=== PATIENT | female | born 1985 | race Caucasian/White ===

== ENCOUNTER 2017-05-04 18:15 | Inpatient (IN) | payer OTHER ==
[~2017-05-04] VITALS: Ht 161.3 cm; Wt 98.0 kg
[2017-05-04] MEDS ORDERED: LR 1,000 ML IV ONE (18:51)
[2017-05-04] MEDS ORDERED: OXYTOCIN/NORMAL SALINE 1,000 ML IV SCH (18:51)
[2017-05-04] MEDS ORDERED: TERBUTALINE SULFATE 1 MG/ML VIAL SUBCUT ONE (19:00)
[2017-05-04 19:18] LABS: BASOPHILS % (AUTO) 0.4 % (0.0-2.0); EOSINOPHILS # (AUTO) 0.1 K/uL (0.0-0.4); EOSINOPHILS % (AUTO) 0.9 % (0.0-4.0); HEMATOCRIT 38.6 % (36-48); HEMOGLOBIN 12.9 g/dL (12.0-16.0); LYMPHOCYTES # (AUTO) 1.6 K/uL (1.0-5.5); LYMPHOCYTES % (AUTO) 17.1 % (20.5-51.5); MEAN CORPUSCULAR HEMOGLOBIN 28 pg (27-31); MEAN CORPUSCULAR HGB CONC 33 % (32-36); MEAN CORPUSCULAR VOLUME 85 fL (79.0-98.0); MONOCYTES # (AUTO) 0.6 K/uL (0.0-1.0); MONOCYTES % (AUTO) 6.4 % (1.7-9.3); NEUTROPHILS # (AUTO) 7.2 K/uL (1.8-7.7); NEUTROPHILS % (AUTO) 75.2 % (40.0-70.0); PLATELET COUNT (AUTO) 200 K/uL (130-430); RED BLOOD CELL COUNT(AUTO) 4.55 MIL/uL (4.2-6.2); RED CELL DISTRIBUTION WIDTH 14.5 % (9.0-15.0); WHITE BLOOD COUNT (AUTO) 9.5 K/uL (4.8-10.8)
[2017-05-05] MEDS: NALBUPHINE HCL 10 MG/ML AMP IVP PRN ×2 (00:31→02:43)
[2017-05-05 07:57] VITALS: BP_SYST 115
[2017-05-05] MEDS ORDERED: fentaNYL CITRATE/PF 100 MCG/2 ML AMP ONE (13:19)
[2017-05-05] MEDS ORDERED: FENT2mCg/mL-ROPIVA0.2%/NS EPID 150 ML EP ONE (13:20)
[2017-05-05] MEDS ORDERED: LR 500 ML IV ONE (13:37)
[2017-05-05] MEDS ORDERED: fentaNYL CITRATE/PF 100 MCG/2 ML AMP EP ONE (13:45)
[2017-05-05] MEDS ORDERED: FENT2mCg/mL-ROPIVA0.2%/NS EPID 150 ML EP SCH (13:45)
[2017-05-05] MEDS ORDERED: ePHEDrine sulfate 50 MG/ML VIAL IVP PRN (13:45)
[2017-05-05] MEDS ORDERED: ROPIVACAINE 40 MG/20 ML AMP EP ONE (15:00)
[2017-05-05] MEDS ORDERED: LR 1,000 ML IV ONE (18:21)
[2017-05-05] MEDS ORDERED: CEFAZOLIN 2 GM IVPB PREMIX 50 ML IV ONE (18:30)
[2017-05-05] MEDS ORDERED: LR 1,000 ML IV.SOLN IV ONE (19:05)
[2017-05-05] MEDS ORDERED: METHYLERGONOVINE MALEATE 0.2 MG/ML AMP IM ONE (19:05)
[2017-05-05] MEDS ORDERED: ONDANSETRON HCL 4 MG/2 ML VIAL IVP ONE (19:05)
[2017-05-05] MEDS ORDERED: MIDAZOLAM HCL 5 MG/5 ML VIAL IVP ONE (19:05)
[2017-05-05] MEDS ORDERED: MORPHINE SULFATE 10 MG/ML VIAL IVP ONE (19:05)
[2017-05-05] MEDS ORDERED: OXYTOCIN 10 UNIT/ML VIAL IV ONE (19:05)
[2017-05-05] MEDS ORDERED: NS IRRIG SOLN 1000 ML IR ONE (19:05)
[2017-05-05] MEDS ORDERED: ALFENTANIL HCL 1000 MCG/2 ML AMP IVP ONE (19:05)
[2017-05-05] MEDS ORDERED: LR 1,000 ML IV SCH ×2 (20:54→20:57)
[2017-05-05] MEDS ORDERED: NALOXONE HCL 1 MG in NACL 0.9% 1,000 ML IV PRN ×4 (20:57)
[2017-05-05] MEDS ORDERED: HYDROmorphone 1 MG INJ. 1 MG/ML AMPUL IVP PRN (21:00)
[2017-05-05] MEDS ORDERED: HYDROcodone/ACETAMIN 5-325 MG TAB (NORCO/ VICODIN) PO PRN (21:00)
[2017-05-05] MEDS ORDERED: LANOLIN 7 GM OINT. TP PRN (21:00)
[2017-05-05] MEDS ORDERED: ANUSOL 1 EA SUPP.RECT (PREPARATION H) RC PRN (21:00)
[2017-05-05] MEDS ORDERED: HYDROmorphone 2 MG/ML VIAL IVP PRN ×2 (21:00)
[2017-05-05] MEDS ORDERED: SENNOSIDES/DOCUSATE SODIUM 1 TAB TABLET(SENOKOT-S) PO PRN (21:00)
[2017-05-05] MEDS ORDERED: BISACODYL 10 MG/SUPPOSITORY RC PRN (21:00)
[2017-05-05] MEDS ORDERED: DIPHENHYDRAMINE HCL 50 MG CAPSULE PO PRN (21:00)
[2017-05-05] MEDS ORDERED: MEASLES,MUMPS&RUBELLA VACC/PF 12500 UNIT/0.5 ML VIAL SUBQ PRN (21:00)
[2017-05-05] MEDS ORDERED: RHO(D) IMMUNE GLOBULIN/MALTOSE 1500 UNITS/1.3 ML (WINHRO) IM PRN (21:00)
[2017-05-05] MEDS ORDERED: MEPERIDINE HCL/PF 25 MG/ML DISP.SYRIN IVP PRN ×2 (21:00)
[2017-05-05] MEDS ORDERED: ONDANSETRON HCL 4 MG/2 ML VIAL IVP PRN (21:00)
[2017-05-05] MEDS ORDERED: TEMAZEPAM 15 MG CAPSULE PO PRN (21:00)
[2017-05-05] MEDS ORDERED: OXYCODONE/ACETAMINOPHEN 5-325 TABLET PO PRN (21:00)
[2017-05-05] MEDS ORDERED: NALOXONE HCL 0.4 MG/ML AMP (NARCAN) IVP PRN ×3 (21:00)
[2017-05-05] MEDS: OXYTOCIN/NORMAL SALINE 1,000 ML IV SCH (21:05)
[2017-05-05] MEDS ORDERED: OXYTOCIN/NORMAL SALINE 1,000 ML IV ONE (21:20)
[2017-05-05] MEDS ORDERED: HYDROmorphone 2 MG/ML VIAL ONE (21:32)
[2017-05-05 21:34] VITALS: BP_SYST 145
[2017-05-06] MEDS: CEFAZOLIN 1 GM IVPB PREMIX 50 ML IV SCH ×3 (02:00→15:00)
[2017-05-06] MEDS ORDERED: HYDROmorphone 2 MG/ML VIAL IVP PRN (04:46)
[2017-05-06] MEDS: OXYTOCIN/NORMAL SALINE 1,000 ML IV SCH (04:54)
[2017-05-06] MEDS ORDERED: HYDROmorphone 2 MG/ML VIAL ONE ×2 (05:00→13:37)
[2017-05-06] MEDS: DIPHENHYDRAMINE INJ 50 MG/ML VIAL IVP PRN ×2 (06:01→10:42)
[2017-05-06 06:57] LABS: BASOPHILS % (AUTO) 0.2 % (0.0-2.0); EOSINOPHILS # (AUTO) 0.1 K/uL (0.0-0.4); EOSINOPHILS % (AUTO) 0.8 % (0.0-4.0); HEMOGLOBIN 9.9 g/dL (12.0-16.0); LYMPHOCYTES # (AUTO) 1.5 K/uL (1.0-5.5); LYMPHOCYTES % (AUTO) 17.7 % (20.5-51.5); MEAN CORPUSCULAR HEMOGLOBIN 28 pg (27-31); MEAN CORPUSCULAR HGB CONC 33 % (32-36); MEAN CORPUSCULAR VOLUME 85 fL (79.0-98.0); MONOCYTES # (AUTO) 0.5 K/uL (0.0-1.0); MONOCYTES % (AUTO) 6.1 % (1.7-9.3); NEUTROPHILS # (AUTO) 6.6 K/uL (1.8-7.7); NEUTROPHILS % (AUTO) 75.2 % (40.0-70.0); PLATELET COUNT (AUTO) 143 K/uL (130-430); RED BLOOD CELL COUNT(AUTO) 3.55 MIL/uL (4.2-6.2); RED CELL DISTRIBUTION WIDTH 14.4 % (9.0-15.0); WHITE BLOOD COUNT (AUTO) 8.7 K/uL (4.8-10.8)
[2017-05-06] MEDS: DOCUSATE SODIUM 100 MG CAPSULE PO PRN (09:04)
[2017-05-06] MEDS: OXYCODONE/ACETAMINOPHEN 5-325 TABLET PO PRN ×2 (09:05→22:00)
[2017-05-06] MEDS ORDERED: HYDROmorphone 2 MG/ML VIAL IM PRN (13:30)
[2017-05-06] MEDS ORDERED: DIPHENHYDRAMINE INJ 50 MG/ML VIAL ONE (13:37)
[2017-05-06] MEDS: MEPERIDINE HCL/PF 100 MG/ML AMP IM PRN (19:45)
[2017-05-06] MEDS ORDERED: MEPERIDINE HCL/PF 100 MG/ML AMP ONE (19:46)
[2017-05-06] MEDS ORDERED: PROMETHAZINE HCL 25 MG/ML AMP ONE (19:48)
[2017-05-07] MEDS: PROMETHAZINE HCL 25 MG/ML AMP IM PRN (04:12)
[2017-05-07] MEDS: OXYCODONE/ACETAMINOPHEN 5-325 TABLET PO PRN ×3 (10:12→20:46)
[2017-05-07] MEDS: SIMETHICONE 80 MG TAB.CHEW PO PRN ×2 (16:21→20:45)
[2017-05-07] MEDS: DOCUSATE SODIUM 100 MG CAPSULE PO PRN (16:21)
[2017-05-07] MEDS: DIPHENHYDRAMINE INJ 50 MG/ML VIAL IM PRN (22:27)
[2017-05-08] MEDS: MEPERIDINE HCL/PF 100 MG/ML AMP IM PRN ×2 (02:41→14:01)
[2017-05-08] MEDS: OXYCODONE/ACETAMINOPHEN 5-325 TABLET PO PRN ×3 (08:40→22:28)
[2017-05-08] MEDS: DIPHENHYDRAMINE INJ 50 MG/ML VIAL IM PRN ×3 (09:48→22:16)
[2017-05-08] MEDS: DOCUSATE SODIUM 100 MG CAPSULE PO PRN (22:27)
[2017-05-08] MEDS: SIMETHICONE 80 MG TAB.CHEW PO PRN (22:28)
[2017-05-09] MEDS: DOCUSATE SODIUM 100 MG CAPSULE PO PRN (07:54)
[2017-05-09] MEDS: OXYCODONE/ACETAMINOPHEN 5-325 TABLET PO PRN ×2 (07:54→12:25)
[2017-05-09] MEDS: MEPERIDINE HCL/PF 100 MG/ML AMP IM PRN (16:12)
[2017-05-09] MEDS: PROMETHAZINE HCL 25 MG/ML AMP IM PRN (16:12)
== END 2017-05-09 18:00 | disposition home or self-care (01) | DRG 766 ==
LOC: SPU 18:25
PROVIDERS: ADMIT Specialist; ATTEND Specialist
PROC: 3E0134Z Introduction of Serum, Toxoid and Vaccine into Subcutaneous Tissue, Percutaneous Approach (ICD-10-PCS; 2017-05-05)
PROC: 10D00Z1 Extraction of Products of Conception, Low, Open Approach (ICD-10-PCS; principal; 2017-05-05 20:00)
DX: O32.4XX0 Maternal care for high head at term, not applicable or unspecified (principal); O69.2XX0 Labor and delivery complicated by other cord entanglement, with compression, not applicable or unspecified; O77.0 Labor and delivery complicated by meconium in amniotic fluid; O99.214 Obesity complicating childbirth; E66.01 Morbid (severe) obesity due to excess calories; O99.344 Other mental disorders complicating childbirth; F32.9 Major depressive disorder, single episode, unspecified; O99.52 Diseases of the respiratory system complicating childbirth; J45.998 Other asthma; O62.2 Other uterine inertia; O77.9 Labor and delivery complicated by fetal stress, unspecified; Z3A.39 39 weeks gestation of pregnancy; Z88.1 Allergy status to other antibiotic agents; Z37.0 Single live birth; Z88.8 Allergy status to other drugs, medicaments and biological substances; Z23 Encounter for immunization; Z68.37 Body mass index [BMI] 37.0-37.9, adult; Z87.442 Personal history of urinary calculi; Z83.3 Family history of diabetes mellitus; Z80.3 Family history of malignant neoplasm of breast; Z82.49 Family history of ischemic heart disease and other diseases of the circulatory system; Z98.84 Bariatric surgery status; Z82.0 Family history of epilepsy and other diseases of the nervous system; Z84.89 Family history of other specified conditions
CPT/HCPCS: 36415; 81002-TC; 85025; 86592; 86886; 86900; 86901; 94760; J0690; J1170; J1200; J2175; J2210; J2250; J2270; J2300; J2405; J2550; J2590; J2795; J3010; J3490; J7120